=== PATIENT | male | born 1965 | race Caucasian/White ===

== ENCOUNTER 2024-04-02 14:41 | Outpatient (CLI) | payer OTHER, SELFPAY ==
--- NOTE | ~2024-04-02 | XR_ITS ---
EXAMINATION: XR foot LT min 3V, XR ankle LT min 3V DATE: 04/02/2024 15:12 INDICATION: Left foot and ankle pain TECHNIQUE: 1. Anteroposterior, mortise, additional oblique and lateral view of the left ankle were obtained. 2. Dorsoplantar, two oblique and lateral views of the left foot were obtained. COMPARISON: None. FINDINGS: Alignment of the foot and ankle is normal. No fracture. Mild osteoarthritis at the first metatarsopha langeal joint and a few tarsometatarsal and interphalangeal joints. No ankle joint effusion. The soft tissues are unremarkable. IMPRESSION: 1. Mild polyarticular osteoarthritis in the left mid and forefoot. No acute osseous abnormality. Reviewed, dictated and finalized at location B. RVISOR PRE WAVE IMPRESSION: 1. Mild polyarticular osteoarthritis in the left mid and forefoot. No acute oss eous abnormality.
== END 2024-04-02 14:42 | disposition home or self-care (01) ==
DX: M19.072 Primary osteoarthritis, left ankle and foot (principal)
CPT/HCPCS: 73610; 73630